=== PATIENT | female | born 1975 | race Caucasian/White ===

== ENCOUNTER → 2019-05-03 | Outpatient (CLI) | payer BC ==
[~2019-05-03] MED LIST: IOHEXOL 240 MG/ML 50ML VIAL. PO ONE; IOHEXOL 300 MG/ML 100ML VIAL. IV ONE
--- NOTE | 2019-05-03 12:58 | KCIC ---
CT ABD PELV W/ORAL IV CONTRAST Indication: Fatigue, left upper quadrant pain Technique: Postcontrast CT imaging was performed of the abdomen pelvis, multiplanar reconstruction images submitted. Oral contrast was also given. One or more of the following individualized dose reduction techniques were utilized for this examination: 1. Automated exposure control 2. Adjustment of the mA and/or kV according to patient size 3. Use of iterative reconstruction technique. Comparison: None Findings: There is mild linear likely atelectasis of the left lower lobe near base. No focal abnormality is identified of the pancreas or spleen. Focus of hypodensity of the left lobe of the liver near the fissure of the ligamentum teres is in a common location for site of decreased perfusion or focal fatty infiltration, measures about 1.8 cm transverse by 1.2 cm AP. Gallbladder is present without obvious intraluminal abnormality by CT. There is no significant adrenal nodularity. 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 Right kidney enhances, no hydronephrosis. Bowel is not significantly dilated. There is no free air or free fluid. There is mild to moderate sigmoid diverticulosis not associated with inflammatory change. There is exophytic mass of the anterior left uterus about 2.9 cm transverse by 2.3 cm AP by 3.7 cm cc. There is another adjacent mass just laterally and superiorly about 1.7 cm in size. There is mild prominence of the urinary bladder peña circumferentially. There is mild strandy change of the left anterior abdominal subcutaneous fat. There is probably a tiny ventral fat-containing hernia as seen axial image 31 series 2 with neck about 0.7 cm, no internal bowel. IMPRESSION: 1. There are exophytic masses of the anterior left uterus, statistically more likely due to fibroids, better characterized by ultrasound. 2. There has been left nephrectomy, no left renal fossa mass. 3. Focus of hypodensity of the left lobe of the liver is in a common location for site of decreased perfusion or focal fatty infiltration. 4. There is sigmoid diverticulosis. 5. There is nonspecific prominence of the bladder peña, may be due to incomplete distention during exam assuming no clinical suspicion for cystitis. 6. There is a tiny ventral fat-containing hernia in the abdomen, no internal bowel. There is nonspecific strandy change of the left anterior abdominal subcutaneous fat, most likely on postsurgical basis. Electronically signed by: Jaspal Greenberg MD (05/03/2019 12:55 PM) [email or web address]
--- NOTE | 2019-05-03 13:57 | KCIC ---
THYROID ULTRASOUND History: Enlarged thyroid, Jessie's Comparison: None. Findings: Multiple sonographic images of the thyroid gland are submitted. Right lobe measured 5 x 1.9 x 1.8 cm. Left lobe measured 4 x 1.3 x 1.7 cm. Isthmus measured 0.3 cm in thickness. There is diffuse prominent heterogeneity of the thyroid parenchyma bilaterally, may be underlying diffuse nodularity bilaterally. Discrete dominant nodule is not confidently identified. There is some scattered internal vascularity of the thyroid gland bilaterally although not asymmetrically hypervascular. Impression: 1. There is diffuse somewhat nodular appearing heterogeneity of the thyroid gland bilaterally as may be due to sequela of thyroiditis. Electronically signed by: Jaspal Greenberg MD (05/03/2019 1:54 PM) [id number]
== END | disposition home or self-care (01) ==
LOC: KCIC US 10:00
PROVIDERS: ATTEND Nurse Practitioner Family
DX: K76.0 Fatty (change of) liver, not elsewhere classified (principal); K57.30 Diverticulosis of large intestine without perforation or abscess without bleeding; N85.8 Other specified noninflammatory disorders of uterus; K43.9 Ventral hernia without obstruction or gangrene; E04.9 Nontoxic goiter, unspecified; J45.909 Unspecified asthma, uncomplicated; F17.200 Nicotine dependence, unspecified, uncomplicated; Z88.2 Allergy status to sulfonamides; Z88.5 Allergy status to narcotic agent; Z88.8 Allergy status to other drugs, medicaments and biological substances; Z90.5 Acquired absence of kidney
CPT/HCPCS: 74177; 76536; Q9966; Q9967

== ENCOUNTER → 2019-05-13 | Outpatient (CLI) | payer BC ==
--- NOTE | 2019-05-13 18:00 | KCIC ---
INDICATION: Uterine mass on CT. Last menstrual period is unknown. COMPARISON: None available. TECHNIQUE: Transabdominal and endovaginal sonography was performed FINDINGS: The uterus measures 10.7 x 4.8 x 5.2 cm. The endometrium measures 1.7 cm on endovaginal images. Exophytic left uterine nodular structure arising from the d is seen at the fundus of the uterus measuring 3.9 x 2.8 x 3.2 cm. The right ovary measures 2.1 x 1.4 x 1.9 cm on endovaginal images. Flow seen to the right ovary. The left ovary is not seen, possibly obscured by overlying bowel gas. There is no free fluid. IMPRESSION: 1. Exophytic left uterine nodular structure may represent uterine fibroid. 2. Right ovary is normal without evidence for torsion. 3. Prominence of endometrium, borderline thickened at 17 mm, can be correlated with phase of menstrual cycle. Consider follow-up in 6-8 weeks as clinically indicated. Electronically signed by: Fabiano Jones MD (05/13/2019 5:58 PM) [facility]
== END | disposition home or self-care (01) ==
LOC: KCIC US 15:04
PROVIDERS: ATTEND Nurse Practitioner Family
DX: N94.89 Other specified conditions associated with female genital organs and menstrual cycle (principal)
CPT/HCPCS: 76830; 76856